=== PATIENT | male | born 1970 | race Caucasian/White ===

== ENCOUNTER 2016-11-13 20:02 | Inpatient (IN) | payer BC ==
[2016-11-13] MEDS ORDERED: IOPAMIDOL 300 (61%) 100 ML VIAL IV ONE (20:03)
[2016-11-13] MEDS ORDERED: LACTATED RINGERS 1,000 ML ONE (20:49)
[2016-11-13 21:00] LABS: ABSOLUTE NEUTROPHIL COUNT 13.5 K/mm3 (1.8-7.7); BASO % 0.2 % (0.2-1.0); EOS % 0.1 % (0.9-2.9); HEMOGLOBIN 16.4 gm/l (14.0-18.0); IMM NEUT # 0.1 K/mm3 (0-0.2); IMM NEUT% 0.5 % (0-1); LYMPH # 0.7 (1.0-4.8); LYMPH % 4.3 % (15-45); MEAN CELL VOLUME 85.6 fl (80.0-94.0); MEAN CORPUSCULAR HEMOGLOBIN 29.9 pg (27.0-31.0); MEAN CORPUSCULAR HGB CONC 34.9 g/dl (33.0-37.0); MEAN PLATELET VOLUME 10.3 fl (7.4-10.4); MONO # 1.2 (0.0-0.8); MONO % 7.6 % (4-12); NEUT % 87.3 % (43-75); PLATELET COUNT 178 K/mm3 (130-400)
[2016-11-13 21:27] LABS: CALCIUM 9.1 mg/dL (8.6-10.3)
--- NOTE | 2016-11-13 22:14 | CT ---
Name: RAYSHAWN DOMINGO Exam: CT abdomen pelvis with contrast Comparison: None History: Right lower quadrant pain Procedure: Helical CT using multidetector technique was applied to the abdomen and pelvis during intravenous administration of 100 cc Isovue-300. No oral contrast was given per ordering physician. An automated dose reduction technique was used to minimize patient radiation dose. Findings: CT abdomen (contrast enhanced): There is mild bibasilar atelectasis. Heart is not enlarged. There is no pericardial effusion. In the medial segment of the left hepatic lobe, there is a 12 mm indeterminate hypodensity which is too small to characterize on this exam. The gallbladder is not distended. There is no suspicious biliary dilation. The pancreas is small. The spleen is mildly enlarged. Adrenal glands, kidneys, aorta, IVC and portal vein are within normal limits. Stomach is normal. Small bowel is fluid-filled but not particularly dilated. There is mild to moderate stool within the colon. Right pericolonic stranding is present. There is no free air or suspicious adenopathy. Small fat filled umbilical hernia is present. Regional skeleton is normal. CT pelvis (contrast enhanced): Anterior bladder wall is thickened. Prostate and seminal vesicles are normal. Colon and small bowel are unremarkable. The cecum is inflamed. There is a large amount of pericecal stranding. The appendix extends inferior from the cecum and is quite dilated. Extraluminal air is present. There is a large amount of periappendiceal stranding and fluid. Small amount of fluid does extend into the pelvis. Impression: 1. Perforated appendicitis. There is no current organized abscess. 2. 12 mm indeterminate hypodensity within the medial segment of the left hepatic lobe. Nonemergent follow-up ultrasound is recommended 3. Small fat filled umbilical hernia Note: Dr. Olivares nor Dr. Charles was available for full report. Critical result was left with the ED staff at 2208 hours
[2016-11-13] MEDS ORDERED: PIPERACILLIN-TAZO PREMIX BAG 50 ML IV ONE (22:25)
[2016-11-13] MEDS ORDERED: MENTHOL/CETYLPYRD 1 EACH LOZENGE PO PRN (22:38)
[2016-11-13] MEDS ORDERED: MORPHINE SULFATE 2 MG/ML SYRINGE IV PRN (22:38)
[2016-11-13] MEDS ORDERED: BLISTEX LIPSTICK 1 EACH TP PRN (22:38)
[2016-11-13] MEDS ORDERED: ONDANSETRON 4 MG/2ML 2 ML VIAL IV PRN (22:38)
[2016-11-13] MEDS ORDERED: PIPERACILLIN-TAZO PREMIX BAG 3.375 G in Premix (D5W) 50 ml 1 EACH IV SCH (23:00)
[2016-11-13] MEDS ORDERED: ENOXAPARIN SODIUM 30 MG/0.3 ML SYRINGE SUB-Q SCH (23:15)
[2016-11-13] MEDS ORDERED: PUMP TUBING ONE (23:47)
[2016-11-13] MEDS: LACTATED RINGERS 1,000 ML IV SCH (23:56)
[2016-11-14 00:02] VITALS: BMI 23.9
[2016-11-14] MEDS ORDERED: PIPERACILLIN-TAZO PREMIX BAG 50 ML IV ONE (05:09)
[2016-11-14] MEDS: PIPERACILLIN-TAZO PREMIX BAG 3.375 G in Premix (D5W) 50 ml 1 EACH IV SCH ×4 (05:25→22:53)
[2016-11-14 06:31] LABS: HEMATOCRIT 43.4 % (32.0-52.0); HEMOGLOBIN 15.1 gm/l (14.0-18.0); MEAN CELL VOLUME 84.8 fl (80.0-94.0); MEAN CORPUSCULAR HEMOGLOBIN 29.5 pg (27.0-31.0); MEAN CORPUSCULAR HGB CONC 34.8 g/dl (33.0-37.0); RED CELL DISTRIBUTION WIDTH 11.9 % (11.5-14.5)
[2016-11-14 06:47] LABS: CALCIUM 8.7 mg/dL (8.6-10.3); MAGNESIUM 1.9 mg/dL (1.9-2.7)
[2016-11-14] MEDS: LACTATED RINGERS 1,000 ML IV SCH ×2 (08:27→17:15)
[2016-11-14] MEDS ORDERED: D5 1/2NS with 20 mEq KCL 1,000 ML IV SCH (08:30)
--- NOTE | 2016-11-14 10:02 | PDOC1 ---
History & Physical: CC: Abdominal Pain HPI: 46yo M with Type 1 DM and CAD with stent placement in the last 6 months presents with 2 days of RLQ pain. The pain is constant and worsened over the last two days. This has been associated with an episode of NV, anorexia, and two loose BMs. Still passing flatus. The patient denies any recent F/C/CP/SOB, change in bladder fx, constipation, unintentional weight loss, easy bleeding/ bruising, or other associated symptoms. Of note, the patient has never had a colonoscopy REVIEW OF SYSTEMS CONSTITUTIONAL: As per HPI. EARS, NOSE, MOUTH, THROAT: No sneezing or runny nose CARDIOVASCULAR: As per HPI. RESPIRATORY: As per HPI. GASTROINTESTINAL: As per HPI. GENITOURINARY: As per HPI. NEUROLOGICAL: No history of seizures HEMATOLOGIC: As per HPI. MUSCULOSKELETAL: No change in strength. LYMPHATICS: No history of splenectomy. PSYCHIATRIC: No change in personality or affect PMH: Type 1 DM, CAD (3 total stent placements in April and June 2016 PSH: None Meds: Brilinta 90mg BID, Metoprolol 12.5mg BID, Lantus 60 units BID, Novolog postprandial All: NKDA SH: Denies smoking or ETOH FH: No FH of cancers Vitals (last 24 hours): Vital Signs Last 12 Hours Temp Pulse Resp BP Pulse Ox 11/14/16 07:45 99 F 90 16 123/71 96 11/14/16 07:30 16 11/14/16 06:00 16 11/14/16 03:57 99.3 F 99 16 134/65 96 11/13/16 23:10 98.6 F 96 16 125/71 95 Physical Exam: General/Constitutional: Vitals documented above, comfortable in NAD Psych: A&O x 3, normal judgment and insight. Recent and remote memory intact. Mood and affect normal. Eyes: Pupils equal, no scleral icterus Ears, Nose, Mouth, Throat: gross hearing intact Neck: Supple Heart: RRR, no LE edema Lungs: Equal rise and fall of chest wall, non-labored breathing, no audible wheezes Neuro: Gross sensation intact Abdomen: Soft, ND, moderate RLQ TTP without guarding. Labs (Last 24 hours): Laboratory Tests 11/13/16 11/13/16 11/14/16 18:22 20:50 05:30 WBC 15.5 H 14.6 H RBC 5.49 5.12 Hgb 16.4 15.1 Hct 47.0 43.4 MCV 85.6 84.8 MCH 29.9 29.5 MCHC 34.9 34.8 RDW 12.0 11.9 Plt Count 178 169 Neut % (Auto) 87.3 H Lymph % (Auto) 4.3 L [place] % (Auto) 7.6 Baso % (Auto) 0.2 Absolute Neuts (auto) 13.5 H Eosinophils % 0.1 L Sodium 136 136 137 Potassium 4.1 4.5 3.8 Chloride 100 100 102 Carbon Dioxide 27 26 28 Anion Gap 13 15 11 BUN 16 17 14 Creatinine 0.9 0.9 0.8 Estimated GFR 91 91 105 H BUN/Creatinine Ratio 18 19 18 Glucose 176 H 181 H 78 POC Capillary Glucose Calcium 8.9 9.1 8.7 Phosphorus 2.9 Magnesium 1.9 Total Bilirubin 1.3 H AST 26 ALT 29 Alkaline Phosphatase 75 Total Protein 6.4 Albumin 3.8 Globulin 2.6 Albumin/Globulin Ratio 1.5 Amylase 19 L Lipase 3 L % Immature Granulocyt 0.5 Radiology: Perforated appendicitis with phlegmon but no definite abscess, 12mm indeterminate hypdensity in liver (recommend outpatient liver US), and small fat filled umbilical hernia A/P: 46yo M with perforated appendicitis. Given the absence of a fecalith, I think it is warranted to treat him medically with IV Antibiotics. OK to have clear liquids and maintenence fluids at 75mL/hr. His WBC has improved from 15> 14 overnight. Given his Type 1 DM and significant dose of Lantus, will consult hospitalist service to assist with management. Given cardiac stents placed in last 6 months, will continue Brilinta. If there is a need to go urgently to the operating room, I have placed a type and screen and discussed potential platelet transfusion with the blood bank (reversal of Brilinta). Continue home beta emeli while in hospital. SCDs only for DVT Proph given potential bleeding risk with Brilinta. Kervin Castro MD General Surgeon C: [phone]
[2016-11-14] MEDS: METOPROLOL SUCCINATE 25 MG TAB.ER.24H PO SCH ×2 (10:17→21:17)
[2016-11-14] MEDS: TICAGRELOR 90 MG TABLET PO SCH ×2 (10:22→21:08)
[2016-11-14] MEDS: INSULIN REGULAR HUMAN (DOSE) 100 UNITS/1 ML SUB-Q SCH ×3 (12:39→22:41)
[2016-11-14] MEDS: INSULIN GLARGINE (DOSE) 100 UNITS/ML UNIT SUB-Q SCH ×2 (17:17→21:08)
[2016-11-15] MEDS: PIPERACILLIN-TAZO PREMIX BAG 3.375 G in Premix (D5W) 50 ml 1 EACH IV SCH (05:00)
--- NOTE | 2016-11-15 05:38 | CONS ---
RAYSHAWN BYRNE [id number] DATE OF : 1970 DATE OF CONSULTATION: 11/14/2016 CHIEF COMPLAINT: Consulted by Dr. Kervin aCstro of general surgery for co-management of medical illnesses to include diabetes and coronary artery disease in the setting of appendicitis with perforation. HISTORY OF PRESENT ILLNESS: Mr. Byrne is a 46-year-old male who began to experience pain in the right lower quadrant of the abdomen approximately two days ago, Tuesday. The pain became constant and increasing in severity, with associated nausea, vomiting, loose bowel movements and decreased appetite. He presented to the ER for evaluation and on imaging was noted to have evidence of a perforated appendicitis. He states that he was diagnosed with Type-1 diabetes at 14 years of age, at which time he was acutely admitted to the hospital. The last time he recalls being admitted to the hospital for his diabetes was more than ten years ago during an episode of infection. He states that he typically takes Lantus 60 units at night and carb-counts with Humalog during the day for his meals. In April he presented to an outside emergency room with chest pain, was found to have an acute OR, and had several drug-eluting stents placed. Later in June as an outpatient he was scheduled for another catheterization with intervention and had several more drug-eluting stents placed at that time. He has been on Brilinta since and is followed by cardiology. REVIEW OF SYSTEMS: As per HPI. The remainder of the systems are reviewed and acutely negative. PAST MEDICAL HISTORY: 1. Type-1 diabetes mellitus. 2. Coronary artery disease. PAST SURGICAL HISTORY: None. ALLERGIES: No known drug allergies. HOME MEDICATIONS: 1. Lisinopril 10 mg daily. 2. Humalog insulin with meals two to three times daily based on sliding scale. 3. Lopressor 12.5 mg twice a day. 4. Brilinta 90 mg twice daily. 5. Lantus 60 units sub-Q daily. PERTINENT LABS AND DIAGNOSTIC STUDIES: 1. CBCs from 11/13/2016 and 11/14/2016 are reviewed. 2. CMP from is reviewed. 3. BMP from 11/14/[address] abdomen and pelvis from 11/13/2016 is reviewed. PHYSICAL EXAMINATION: VITAL SIGNS: Temperature 99.1, which is also his T-max. Heart rate 90. Blood pressure 131/81. Respiratory rate 16. Oxygen saturation 94% on room air. GENERAL: A well-developed and well-nourished adult male in no acute distress. Alert and oriented times three. HEENT: Normocephalic, atraumatic. Extraocular movements are intact. CARDIOVASCULAR: Regular rate and rhythm. No murmur, rub or gallop. PULMONARY: Clear to auscultation bilaterally. No wheezes, rhonchi or crackles. ABDOMEN: Nondistended. Soft. Tenderness to palpation over the right lower quadrant, with no rebound or guarding. EXTREMITIES: No cyanosis, clubbing or edema. PSYCHIATRIC: Normal mood and affect. ASSESSMENT/PLAN: 1. Type-1 diabetic, insulin-dependent. The patient is on a limited diet of clear liquids and has had a poor appetite, therefore we will give him Lantus 30 units twice a day rather than 6 units once daily with Humalog with meals. As his diet normalizes, we will replace his insulin with his usual home doses, with attention to avoid hypoglycemia. 2. Coronary artery disease, with drug-eluting stents. The patient is less than six months from his most recent stent placement and is unlikely to require an operation per the general surgeon, therefore Brilinta will be continued. It should be noted that the pharmacodynamics of Brilinta require approximately five days for the platelet aggregation effects to diminish to a subclinical level. Since any trip to the operating room would be emergent, I have advised the general surgeon to continue the Brilinta for now and if an unanticipated trip to the operating room is required to administer one unit of pooled platelets which should have normal activity in order to provide intraoperative hemostasis. Unless unanticipated bleeding or difficulty with hemostasis is encountered in the operating room, the Brilinta can then be continued and will inactivate the transfused platelets and provide protection from acute stent thrombosis. The patient will also continue on his home dose of Beta emeli. The walter inhibitor can be resumed on discharge, as can the aspirin. 3. Perforated appendicitis. Management as per general surgeon. Antibiotics appropriate. No dose adjustment required.
[2016-11-15 06:33] LABS: HEMATOCRIT 39.8 % (32.0-52.0); MEAN CELL VOLUME 85.6 fl (80.0-94.0); MEAN CORPUSCULAR HEMOGLOBIN 30.1 pg (27.0-31.0); MEAN CORPUSCULAR HGB CONC 35.2 g/dl (33.0-37.0); RED CELL DISTRIBUTION WIDTH 12.1 % (11.5-14.5)
[2016-11-15 06:59] LABS: CALCIUM 8.7 mg/dL (8.6-10.3); MAGNESIUM 1.9 mg/dL (1.9-2.7)
[2016-11-15] MEDS: LACTATED RINGERS 1,000 ML IV SCH (07:45)
[2016-11-15] MEDS: INSULIN REGULAR HUMAN (DOSE) 100 UNITS/1 ML SUB-Q SCH ×2 (07:51→13:00)
[2016-11-15] MEDS: METOPROLOL SUCCINATE 25 MG TAB.ER.24H PO SCH (08:42)
[2016-11-15] MEDS: TICAGRELOR 90 MG TABLET PO SCH (08:43)
[2016-11-15] MEDS: INSULIN GLARGINE (DOSE) 100 UNITS/ML UNIT SUB-Q SCH (08:43)
--- NOTE | 2016-11-15 08:53 | PDOC43 ---
- Subjective Chief Complaint: Appendicitis, Type I DM, CAD Subjective: Reports Pain Tolerable, Reports Tolerating Diet Well, Reports Flatus , Reports Urinating Without Difficulty, Reports Abdominal Pain (mild RLQ), Denies Bowel Movement, Denies Nausea, Denies Vomiting, Denies Fever - Objective Vital Signs Temperature 98.6 F 11/15/16 07:41 Pulse Rate 52 11/15/16 07:41 Respiratory Rate 18 11/15/16 07:41 Blood Pressure 126/60 11/15/16 07:41 O2 Saturation by Pulse Oximetry 96 11/15/16 07:41 Oxygen Delivery Method Room Air Oxygen Flow Rate 0 Intake and Output 11/13/16 11/14/16 11/15/16 23:59 23:59 23:59 Intake Total 1973 1655 Output Total 1100 Balance 1973 555 General: Alert, Oriented x3, Cooperative HEENT: Atraumatic, PERRLA, EOMI Lungs: Clear to Auscultation Bilaterally Abdomen: Soft, Tenderness (RLQ), Non-Distended, No Rebounding, No Involuntary Guarding Extremities: Normal Pulses, No Edema, No Tenderness Laboratory 11/15/16 05:30 11/15/16 05:30 11/15/16 11/14/16 05:30 20:54 RBC 4.65 L Estimated GFR 105 H POC Capillary Glucose 177 H Current Medications: Current meds reviewed in EMR. - Problems: Assessment/Plan (1) CAD (coronary artery disease), ak chin coronary artery Status: ChronicAssessment/Plan: Continue home medications, BB, Brilinta. ASA held but fine to resume on discharge or when definitive decision is made that no OR intervention required. (2) S/P drug eluting coronary stent placement Status: ChronicAssessment/Plan: Continue Brilinta in order to prevent acute in stent thrombosis with EVELYN that are less than 6months old. If OR required, transfusion one unit of normal platelets intraoperatively to assist with hemostasis and continue Brilinta unless serious, unanticipated, uncontrollable bleeding occurs. (3) Type 1 diabetes mellitus Status: ChronicAssessment/Plan: Glucose reasonably controlled on Lantus 30U BID on clear liquids. When diet is advanced and patient has tolerated without emesis, resume home medication regimen of once daily Lantus 60Units (24hrs after most recent dose) and SSI Humalog or equivalent with meals. (4) Appendicitis with perforation Status: AcuteAssessment/Plan: On Zosyn, pain controlled, tolerating liquids VTE Prophylaxis: ICP
[2016-11-15] MEDS ORDERED: AMOX 875 MG/CLAV 125 MG 1 EACH TABLET PO SCH (09:00)
--- NOTE | 2016-11-15 09:08 | PDOC43 ---
- Subjective S: Pain improved. Passing flatus, no BM. Tolerating clear liquids. No ambulation. O: Vitals, I/O below Physical Exam: General: Comfortable in NAD HEENT: NCA Heart: RRR Lungs: Non-labored breathing Abdomen: Soft, ND, mild RLQ TTP, no guarding. Improved from yesterday's exam Labs: Below A/P: 46yo Type 1 diabetic with perforated appendicitis, treated with IV Antibiotics. Pain improved and WBC normalized today. Will switch to PO Abx, advance diet and HLIV. If tolerates diet, OK for d/c this afternoon. Will need a colonoscopy in 6 weeks to r/o malignancy. Kervin Castro MD - Objective Vital Signs Temperature 98.6 F 11/15/16 07:41 Pulse Rate 52 11/15/16 07:41 Respiratory Rate 18 11/15/16 07:41 Blood Pressure 126/60 11/15/16 07:41 O2 Saturation by Pulse Oximetry 96 11/15/16 07:41 Oxygen Delivery Method Room Air Oxygen Flow Rate 0 Laboratory 11/15/16 05:30 11/15/16 05:30 11/15/16 11/14/16 05:30 20:54 RBC 4.65 L Estimated GFR 105 H POC Capillary Glucose 177 H Active Medication Orders Category Date Time Status Amox 875 mg/Clav 125 mg [Augmentin-875] Med 11/15/16 09:00 Ordered 1 each PO BID Sodium Chloride 0.9% Flush [Normal Saline 10ml Flush] Med 11/15/16 09:00 Active 10 ml IV Q8HR Intake and Output 11/13/16 11/14/16 11/15/16 23:59 23:59 23:59 Intake Total 1973 1655 Output Total 1099 Balance 1973 019
[2016-11-15 11:26] VITALS: BP 133/66
== END 2016-11-15 13:37 | disposition home or self-care (01) | DRG 373 ==
LOC: ED 20:02 → MS 22:30 → UNDOADMIN 22:30 → MS 22:30 → SDC 22:30 → MS 11-14 17:02
PROVIDERS: ADMIT Surgery; ATTEND Surgery
DX: K35.3 Acute appendicitis with localized peritonitis (principal); I25.10 Atherosclerotic heart disease of native coronary artery without angina pectoris; Z98.61 Coronary angioplasty status; E10.9 Type 1 diabetes mellitus without complications; Z79.4 Long term (current) use of insulin